=== PATIENT | female | born 1940 | race American Indian/Alaskan Native ===

== ENCOUNTER 2016-09-20 12:58 | Outpatient (CLI) | payer MEDICARE ==
--- NOTE | 2016-09-21 13:02 | PET Report ---
PET/CT:09/20/16 12:58:00 CLINICAL: Breast cancer restaging. RADIOPHARMACEUTICAL: 12.93mCi F18-FDG. COMPARISON: None. TECHNIQUE- Following intravenous injection of F-18 FDG and an approximately 60 minute uptake period, CT and PET images from the mid skull to the upper thighs were acquired with the patient in the fasted state. No contrast was administered. The CT protocol used for this PET CT study is designed for attenuation correction and anatomic localization of PET abnormalities. This oncology rn CT is not desired to produce and cannot replace, udxes-vr-xnf-art diagnostic CT scans with specific imaging protocols for different body parts and indications. Plasma glucose at the time of this test: 92g/dl. The standardized uptake values (SUV) are normalized to patient body weight and indicate the highest activity concentration (SUV max) in a given disease site. FINDINGS: Brain--Physiologic FDG uptake in the visualized regions of the brain. Neck--Physiologic FDG uptake . Chest--Physiologic FDG uptake in mediastinal blood pool and myocardium. Lungs--No abnormal uptake. No pulmonary nodule or mass. Benign scar at the right lung apex. Pleura/pericardium--No abnormal uptake. Thoracic nodes--No abnormal uptake. Hepatobiliary--No abnormal uptake. Liver background SUV mean, as a reference for comparing FDG studies, is 3.9 . No liver mass. Spleen--No abnormal uptake. Pancreas--No abnormal uptake. Adrenal Glands--No abnormal uptake. Kidneys/Ureters/Bladder--No abnormal uptake. Abdominopelvic Nodes--No abnormal uptake. Bowel/Peritoneum/Mesentery--No abnormal uptake. Pelvic organs--No abnormal uptake. Bones/Soft Tissues--No abnormal uptake. Other findings: Status post right mastectomy. IMPRESSION- Negative study.
== END 2016-09-20 12:59 | disposition home or self-care (01) ==
LOC: PET 12:58
PROVIDERS: ATTEND Internal Medicine Hematology & Oncology
DX: C50.811 Malignant neoplasm of overlapping sites of right female breast (principal); R97.8 Other abnormal tumor markers; Z90.11 Acquired absence of right breast and nipple
CPT/HCPCS: 78815; 82962; A9552

== ENCOUNTER 2017-03-26 08:18 | Outpatient (CLI) | payer MEDICARE ==
--- NOTE | 2017-03-26 09:19 | Mammography Report ---
Left mammogram: Compared to 03/26/16. CAD study utilized. Findings: Heterogeneous breast parenchyma. No mass or microcalcification. Normal axilla. Impression: Benign findings. Annual followup recommended. BI-RADS CATEGORY: 2 = Benign ACR BI-RADS MAMMOGRAPHIC CODES: 0 = Needs additional imaging evaluation; 1 = Negative; 2 = Benign; 3 = Probably benign; 4 = Suspicious; 5 = Malignant; 6 = Known biopsy-proven malignancy COMMENT: 1. Dense breast tissue, i.e., adenosis, fibrocystic changes, etc., may obscure an underlying neoplasm. 2. Approximately 10% of cancers are not detected with mammography. 3. A negative mammography report should not delay biopsy if a clinically suspicious mass is present.
== END 2017-03-26 08:19 | disposition home or self-care (01) ==
LOC: SPVWC 08:18
PROVIDERS: ATTEND Internal Medicine Hematology & Oncology
DX: Z12.31 Encounter for screening mammogram for malignant neoplasm of breast (principal)
CPT/HCPCS: G0202-52

== ENCOUNTER 2017-04-29 10:37 | Outpatient (CLI) | payer MEDICARE ==
--- NOTE | 2017-04-29 13:54 | Mammography Report ---
BONE DEXA:04/29/17 10:37:00 CLINICAL: Postmenopausal and history of right breast cancer. On an aromatase inhibitor. COMPARISON: 04/15/15 TECHNIQUE: Two site bone DEXA performed on an Hologic scanner. FINDINGS: The average BMD of the lumbar spine L1-L4 is 0.871g/cm squared with a T-score of -2.5 and a Z-score of +0.1. This compares to 0.865g/cm squared on the last exam and represents a +0.7% change from the previous baseline. The average BMD of the left hip is 0.948g/cm squared with a T-score of -0.5 and a Z-score of +0.8. This compares to 0.995g/cm squared on the last exam and represents a -4.7% change from the previous baseline. IMPRESSION: 1. WHO classification: Osteoporosis with high fracture risk based on spine measurements. A slight improvement compared to the last exam. 2. WHO classification: Osteopenia with increase fracture risk based on left hip measurements. Moderate decline compared to the last exam. RECOMMENDATION: Clinical correlation and routine screening. DEFINITIONS: BMD = Bone Mineral Density T-score = BMD related to mean peak bone mass of young adult (mean expressed in Standard Deviation) Z-score = Age matched BMD expressed in SD World Health Organization (WHO) Diagnostic Criteria Normal T-score > -1 SD Osteopenia T-score between -1 and -2.4 SD Osteoporosis T-score -2.5 SD or below NOTE: BMD is not the only risk factor for fracture; also consider factors such as the patient's age, risk of falling, previous osteoporotic fracture, family history of osteoporotic fractures, current smoker, and low body weight. Z-scores are not calculated if >80 years of age.
== END 2017-04-29 10:38 | disposition home or self-care (01) ==
LOC: SPVWC 10:37
PROVIDERS: ATTEND Internal Medicine Hematology & Oncology
DX: M81.0 Age-related osteoporosis without current pathological fracture (principal); M85.88 Other specified disorders of bone density and structure, other site; Z78.0 Asymptomatic menopausal state; Z85.3 Personal history of malignant neoplasm of breast
CPT/HCPCS: 77080

== ENCOUNTER 2018-03-27 10:56 | Outpatient (CLI) | payer MEDICARE ==
--- NOTE | 2018-03-28 14:05 | Mammography Report ---
LEFT DIGITAL SCREENING MAMMOGRAM with CAD: 03/27/18 10:56:00 CLINICAL: Routine screening. Breast cancer survivor status post right mastectomy. COMPARISON:03/22/15 FINDINGS: The breast is heterogeneously dense, which may obscure small masses.No mass, suspicious architectural distortion or suspicious calcifications. IMPRESSION: No mammographic evidence of malignancy. BI-RADS CATEGORY: 1 - - Negative RECOMMENDATION: Routine screening in one year. ACR BI-RADS MAMMOGRAPHIC CODES: 0 = Needs additional imaging evaluation; 1 = Negative; 2 = Benign; 3 = Probably benign; 4 = Suspicious; 5 = Malignant; 6 = Known biopsy-proven malignancy COMMENT: 1. Dense breast tissue, i.e., adenosis, fibrocystic changes, etc., may obscure an underlying neoplasm. 2. Approximately 10% of cancers are not detected with mammography. 3. A negative mammography report should not delay biopsy if a clinically suspicious mass is present. COMMENT: Patient follow-up letters are generated via our [employer] application.
== END 2018-03-27 10:57 | disposition home or self-care (01) ==
LOC: MAMMO 10:56
PROVIDERS: ATTEND Internal Medicine Hematology & Oncology
DX: Z12.31 Encounter for screening mammogram for malignant neoplasm of breast (principal)

== ENCOUNTER 2019-03-31 10:01 | Outpatient (CLI) | payer MEDICARE ==
--- NOTE | 2019-03-31 16:34 | Mammography Report ---
LEFT DIGITAL SCREENING MAMMOGRAM WITH CAD INDICATION: Routine screening mammography. Breast cancer survivor status post right mastectomy. TECHNIQUE: Digital bilateral 2D mammography was obtained in the craniocaudal and mediolateral obliq ue projections. This examination was interpreted with the benefit of Computer-Aided Detection analysi s. COMPARISON: 03/17/2013 FINDINGS: Breast Density: The breasts are heterogeneously dense, which may obscure small masses. No mass, architectural distortion or suspicious calcifications. IMPRESSION:No mammographic evidence of malignancy. BI-RADS Category 1: Negative. No mammographic evidence of malignancy. Recommend routine screening m ammography in one year. A "normal" or negative report should not discourage follow up or biopsy of a clinically significant f inding. A written summary of these findings will be mailed to the patient. The patient will be entered into a mammography reporting system which will generate a reminder letter for the patient's next appointmen t at the appropriate interval. The [employer] recommends yearly mammograms starting at age 40 and continuing as l monserrat as a woman is in good health. Breast MRI is recommended for women with an approximate 20-25% or greater lifetime risk of breast cancer, including women with a strong family history of breast or ova tammie cancer or who have been treated for Hodgkin's disease. Signer Name: Jose Roth MD Signed: 03/31/2019 4:29 PM Workstation Name: [id number]
== END 2019-03-31 10:02 | disposition home or self-care (01) ==
LOC: MAMMO 10:01
PROVIDERS: ATTEND Family Medicine
DX: Z12.31 Encounter for screening mammogram for malignant neoplasm of breast (principal)
CPT/HCPCS: 77067

== ENCOUNTER 2019-10-15 08:33 | Outpatient (CLI) | payer MEDICARE ==
--- NOTE | 2019-10-15 13:40 | PET Report ---
PET/CT HISTORY: C50.811. Restaging of right breast cancer TECHNIQUE: The patient's fasting blood glucose was 105. The patient weighed 130 lbs. The patient w as injected with 15.8 mCi of FDG in the right antecubital fossa at 0948 hours and imaging was started at 1033 hours. The patient was imaged from the skull base to the thighs. All CT scans at this [facility] are performed using CT dose reduction for ALARA by means of automated exposure control. Images we re reviewed on a workstation. COMPARISON: PET/CT dated 09/20/2016 FINDINGS: IMAGED BRAIN: [Physiologic FDG uptake] NECK: [Physiologic FDG uptake] CHEST WALL: [Physiologic FDG uptake]. Stable right mastectomy changes. No recurrent chest wall mass is appreciated. MEDIASTINUM: [Physiologic FDG uptake] LUNGS: [Physiologic FDG uptake] HEPATOBILIARY: [Physiologic FDG uptake]. Liver SUV measures 4.5. PANCREAS: [Physiologic FDG uptake SPLEEN: [Physiologic FDG uptake] KIDNEYS/BLADDER: [Physiologic FDG uptake]. 4 mm calyceal stone in the superior right kidney is noted . ADRENAL GLANDS: [Physiologic FDG uptake] GI/MESENTERY: [Physiologic FDG uptake]. Moderate diverticulosis of the distal colon is again noted. PELVIC VISCERA: [Physiologic FDG uptake] LYMPH NODES: [Physiologic FDG uptake] OSSEOUS STRUCTURES: [Physiologic FDG uptake] ADDITIONAL FINDINGS: [None] IMPRESSION: Negative PET CT. Stable findings since 09/20/2016 exam. Signer Name: Deepak Short Jr, MD Signed: 10/15/2019 1:35 PM Workstation Name: [id number]
== END 2019-10-15 08:34 | disposition home or self-care (01) ==
LOC: PET 08:33
PROVIDERS: ATTEND Internal Medicine Hematology & Oncology
DX: C50.811 Malignant neoplasm of overlapping sites of right female breast (principal); E53.8 Deficiency of other specified B group vitamins
CPT/HCPCS: 78815; 82962; A9552

== ENCOUNTER 2020-04-11 09:58 | Outpatient (CLI) | payer MEDICARE ==
--- NOTE | 2020-04-11 11:19 | Mammography Report ---
DIGITAL SCREENING MAMMOGRAM WITH CAD, 04/11/2020 INDICATION: Routine screening mammography. History of right breast cancer. TECHNIQUE: Digital left 2D mammography was obtained in the craniocaudal and mediolateral oblique pro jections. This examination was interpreted with the benefit of Computer-Aided Detection analysis. COMPARISON: 03/31/2019, 03/27/2018 FINDINGS: Breast Density: The breasts are heterogeneously dense, which may obscure small masses. There is no evidence of dominant mass, suspicious calcifications or architectural distortion in the l eft breast. IMPRESSION: Follow up recommendation: Routine yearly BI-RADS Category 1: Negative. A "normal" or negative report should not discourage follow up or biopsy of a clinically significant f inding. A written summary of these findings will be mailed to the patient. The patient will be entered into a mammography reporting system which will generate a reminder letter for the patient's next appointmen t at the appropriate interval. The [employer] recommends yearly mammograms starting at age 40 and continuing as l monserrat as a woman is in good health. Breast MRI is recommended for women with an approximate 20-25% or greater lifetime risk of breast cancer, including women with a strong family history of breast or ova tammie cancer or who have been treated for Hodgkin's disease. Signer Name: Luis Guerra MD Signed: 04/11/2020 11:15 AM Workstation Name: [id number]
== END 2020-04-11 09:59 | disposition home or self-care (01) ==
LOC: MAMMO 09:58
PROVIDERS: ATTEND Family Medicine
DX: Z12.31 Encounter for screening mammogram for malignant neoplasm of breast (principal)

== ENCOUNTER 2021-04-18 09:48 | Outpatient (CLI) | payer MEDICARE ==
--- NOTE | 2021-04-18 11:47 | Mammography Report ---
DIGITAL SCREENING MAMMOGRAM WITH CAD, 04/18/2021 CLINICAL INFORMATION / INDICATION: Routine screening mammography. SCREENING MAMMOGRAM TECHNIQUE: Digital left 2D mammography was obtained in the craniocaudal and mediolateral oblique pro jections. This examination was interpreted with the benefit of Computer-Aided Detection analysis. COMPARISON: 03/22/2014 through 04/11/2020. FINDINGS: Breast Density: The breasts are heterogeneously dense, which may obscure small masses. No dominant mass, suspicious calcifications, or architectural distortion in the left breast. IMPRESSION: No mammographic evidence of malignancy. Follow up recommendation: Routine yearly BI-RADS Category 1: Negative. A "normal" or negative report should not discourage follow up or biopsy of a clinically significant f inding. A written summary of these findings will be mailed to the patient. The patient will be entered into a mammography reporting system which will generate a reminder letter for the patient's next appointmen t at the appropriate interval. The [employer] recommends yearly mammograms starting at age 40 and continuing as l monserrat as a woman is in good health. Breast MRI is recommended for women with an approximate 20-25% or greater lifetime risk of breast cancer, including women with a strong family history of breast or ova tammie cancer or who have been treated for Hodgkin's disease. Signer Name: Catracho Gonzalez MD Signed: 04/18/2021 11:42 AM Workstation Name: [email or web address]
== END 2021-04-18 09:49 | disposition home or self-care (01) ==
LOC: MAMMO 09:48
PROVIDERS: ATTEND Family Medicine
DX: Z12.31 Encounter for screening mammogram for malignant neoplasm of breast (principal)
CPT/HCPCS: 77067

== ENCOUNTER 2022-04-25 09:38 | Outpatient (CLI) | payer MEDICARE ==
--- NOTE | 2022-04-25 12:19 | Mammography Report ---
DIGITAL SCREENING MAMMOGRAM WITH CAD, 04/25/2022 CLINICAL INFORMATION / INDICATION: Routine screening mammography. TECHNIQUE: Digital left 2D mammography was obtained in the craniocaudal and mediolateral oblique pro jections. This examination was interpreted with the benefit of Computer-Aided Detection analysis. COMPARISON: 03/22/2014 through 04/18/2021. FINDINGS: Breast Density: The breasts are heterogeneously dense, which may obscure small masses. No dominant mass, suspicious calcifications, or architectural distortion in the left breast. IMPRESSION: No mammographic evidence of malignancy. Follow up recommendation: Routine yearly screening mammogram. - The ACR recommends yearly screening MRI in patients with a personal history of breast cancer who mcduffie ve dense fibroglandular tissue as well in patients who were diagnosed with breast cancer under the ag e of 50. BI-RADS Category 1: NEGATIVE A "normal" or negative report should not discourage follow up or biopsy of a clinically significant f inding. A written summary of these findings will be mailed to the patient. The patient will be entered into a mammography reporting system which will generate a reminder letter for the patient's next appointmen t at the appropriate interval. The [employer] recommends yearly mammograms starting at age 40 and continuing as l monserrat as a woman is in good health. Breast MRI is recommended for women with an approximate 20-25% or greater lifetime risk of breast cancer, including women with a strong family history of breast or ova tammie cancer or who have been treated for Hodgkin's disease. Signer Name: Catracho Gonzalez MD Signed: 04/25/2022 12:15 PM Workstation Name: [email or web address]
== END 2022-04-25 09:39 | disposition home or self-care (01) ==
LOC: SPVWC 09:38
PROVIDERS: ATTEND Family Medicine
DX: Z12.31 Encounter for screening mammogram for malignant neoplasm of breast (principal)